=== PATIENT | male | born 1985 | race Caucasian/White ===

== ENCOUNTER 2018-05-21 10:47 | Emergency (ER) | payer BC ==
[2018-05-21 10:56] VITALS: BP 128/83
[2018-05-21] MEDS ORDERED: Sodium Chloride 0.9% 10 ML Syringe FLUSH PRN (11:14)
[2018-05-21] MEDS ORDERED: Sodium Chloride 0.9% 1,000 ML IV ONE (11:14)
[2018-05-21] MEDS ORDERED: Ketorolac 30 MG/ML SDV IVPUSH ONE (11:14)
[2018-05-21] MEDS ORDERED: Ondansetron 4 MG/2 ML SDV IVPUSH ONE (11:14)
[2018-05-21] MEDS ORDERED: Acetaminophen 325 MG Tab PO ONE (11:15)
[2018-05-21 11:43] LABS: CHLORIDE,CL 105 mmol/L (98-107); SODIUM,NA 141 mmol/L (136-145)
--- NOTE | 2018-05-21 12:14 | EDM.PDOC ---
ED HPI GENERAL MEDICAL PROBLEM - General Chief Complaint: Headache Stated Complaint: migraine Time Seen by Provider: 05/21/18 11:10 Source of Information: Reports: Patient History Limitations: Reports: No Limitations - History of Present Illness INITIAL COMMENTS - FREE TEXT/NARRATIVE: Patient comes to ER complaining of right sided headache. Links it to current sinus infection. Has been started on medication for the sinus infection. Was seen for same complaint here in 2016. At that time head negative head CT. Has similar headaches twice yearly usually per self report. Was at [employer] today and was too uncomfortable to continue working. Has tried Excedrin and ice packs. Has nausea. Photophobia. No emesis. No change in usual headache pattern. No other complaints. Right Temporal Headache Pain Score (Numeric/FACES): 9 - Related Data Allergies Allergy/AdvReac Type Severity Reaction Status Date / Time No Known Allergies Allergy Verified 05/21/18 10:56 Home Meds: Home Meds Acetaminophen [Tylenol Extra Strength] 1,000 mg PO Q6HR PRN 10/29/13 [History] Naproxen Sodium [Aleve] 220 mg PO Q12H PRN 10/29/13 [History] Acetaminophen/Caffeine [Excedrin Tension Headache Cplt] 1 each PO ASDIRECTED PRN 05/21/18 [History] Amoxicillin/Potassium Clav [Augmentin 875-125 Tablet] 1 each PO BID 05/21/18 [ History] Past Medical History HEENT History: Reports: Allergic Rhinitis, Sinusitis Neurological History: Reports: Migraines Psychiatric History: Reports: None Endocrine/Metabolic History: Reports: Obesity/BMI 30+ Social & Family History - Tobacco Use Smoking Status *Q: Current Every Day Smoker Years of Tobacco use: 10 Packs/Tins Daily: 0.5 - Living Situation & Occupation Living situation: Reports: Occupation: Employed ED ROS GENERAL - Review of Systems Review Of Systems: See Below Constitutional: Denies: Fever, Chills, Weakness, Diaphoresis HEENT: Reports: Sinus Problem. Denies: Ear Pain, Eye Discharge, Throat Pain, Throat Swelling, Vision Change Respiratory: Reports: No Symptoms Cardiovascular: Reports: No Symptoms GI/Abdominal: Reports: Nausea. Denies: Abdominal Pain, Vomiting : Reports: No Symptoms Musculoskeletal: Reports: No Symptoms Skin: Reports: No Symptoms Neurological: Reports: Headache. Denies: Confusion, Dizziness, Numbness, Paresthesia, Syncope, Tingling, Trouble Speaking, Difficulty Walking, Change in Speech, Gait Disturbance Psychiatric: Reports: No Symptoms Hematologic/Lymphatic: Reports: No Symptoms - Physical Exam Exam: See Below Exam Limited By: No Limitations General Appearance: Alert, No Apparent Distress, Other (Sitting in dark room, wearing sunglasses) Eye Exam: Bilateral Eye: EOMI, PERRL Nose: No: Nasal Deformity, Nasal Swelling Throat/Mouth: Normal Voice, No Airway Compromise Head Exam: Atraumatic, Normocephalic Neck: Supple Respiratory/Chest: No Respiratory Distress Cardiovascular: Regular Rate, Rhythm GI/Abdominal: Soft (Male) Exam: Deferred Rectal (Males) Exam: Deferred Neuro Exam (Abbreviated): Alert, Oriented, CN II-XII Intact, Normal Gait, No Motor/Sensory Deficits Psychiatric: Normal Affect, Normal Mood Skin Exam: Warm, Dry, Normal Color Course - Vital Signs Last Recorded V/S: Last Vital Signs Temp 36.7 C 05/21/18 10:50 Pulse 74 05/21/18 10:50 Resp 20 05/21/18 10:50 BP 128/83 05/21/18 10:50 Pulse Ox 96 05/21/18 10:50 - Orders/Labs/Meds Orders: Active Orders 24 hr Category Date Time Status Sodium Chloride 0.9% [Saline Flush] Med 05/21/18 11:14 Ordered 10 ml FLUSH ASDIRECTED PRN Saline Lock Insert [OM.PC] Routine Oth 05/21/18 11:14 Ordered Medication Orders Sodium Chloride (Saline Flush) 10 ml FLUSH ASDIRECTED PRN PRN Reason: Keep Vein Open Labs: Laboratory Tests 05/21/18 05/21/18 Range/Units 11:20 11:20 WBC 8.4 (4.0-10.2) K/uL RBC 5.20 (4.33-5.41) M/uL Hgb 15.8 (13.1-16.8) g/dL Hct 46.1 (39.0-49.0) % MCV 88.7 (84.0-98.0) fL MCH 30.4 (28.2-33.3) pg MCHC 34.3 (31.7-36.0) g/dL RDW 13.1 (11.2-14.1) % Plt Count 195 (150-350) K/uL Neut % (Auto) 74.8 (45.0-80.0) % Lymph % (Auto) 16.3 (10.0-50.0) % [place] % (Auto) 5.7 (2.0-14.0) % Eos % (Auto) 2.5 (0.0-5.0) % Baso % (Auto) 0.7 (0.0-2.0) % Neut # (Auto) 6.25 (1.40-7.00) K/uL Lymph # (Auto) 1.36 (0.50-3.50) K/uL [place] # (Auto) 0.48 (0.00-1.00) K/uL Eos # (Auto) 0.21 (0.00-0.50) K/uL Baso # (Auto) 0.06 (0.00-0.20) K/uL Sodium 141 (136-145) mmol/L Potassium 3.8 (3.5-5.1) mmol/L Chloride 105 (98-107) mmol/L Carbon Dioxide 30.7 (21.0-32.0) mmol/L BUN 12 (7-18) mg/dL Creatinine 0.94 (0.51-1.17) mg/dL Est Cr Clr Drug Dosing 133.59 mL/min Estimated GFR (MDRD) > 60 mL/min Glucose 125 H (74-106) mg/dL Calcium 8.8 (8.5-10.1) mg/dL Magnesium 2.1 (1.8-2.4) mg/dL Total Bilirubin 0.5 (0.2-1.0) mg/dL AST 25 (15-37) U/L ALT 64 (12-78) U/L Alkaline Phosphatase 85 (46-116) IU/L Total Protein 7.2 (6.4-8.2) g/dL Albumin 4.0 (3.4-5.0) g/dL Meds: Medications Generic Name Dose Route Start Last Admin Trade Name Freq PRN Reason Stop Dose Admin Sodium Chloride 10 ml 05/21/18 11:14 Saline Flush FLUSH ASDIRECTED PRN Keep Vein Open Discontinued Medications Generic Name Dose Route Start Last Admin Trade Name Freq PRN Reason Stop Dose Admin Acetaminophen 650 mg 05/21/18 11:15 05/21/18 11:46 Tylenol PO 05/21/18 11:16 650 mg NOW ONE Administration Sodium Chloride 1,000 mls @ 999 mls/hr 05/21/18 11:14 05/21/18 11:47 Normal Saline IV 05/21/18 12:14 999 mls/hr .BOLUS ONE Administration Ketorolac Tromethamine 30 mg 05/21/18 11:14 05/21/18 11:47 Toradol IVPUSH 05/21/18 11:15 30 mg ONETIME ONE Administration Ondansetron HCl 4 mg 05/21/18 11:14 05/21/18 11:47 Zofran IVPUSH 05/21/18 11:15 4 mg ONETIME ONE Administration - Re-Assessments/Exams Free Text/Narrative Re-Assessment/Exam: 05/21/18 12:15 Baseline labs drawn. IV fluid bolus, Toradol, Zofran given. 05/21/18 12:53 Labs unremarkable. Headache improved. Patient would like to return to work and says that he only has a few hours left in his shift. To follow up as needed if symptoms worsen again. Departure - Departure Time of Disposition: 12:50 Disposition: Home, Self-Care 01 Condition: Good Clinical Impression: Headache - Discharge Information *PRESCRIPTION DRUG MONITORING PROGRAM REVIEWED*: Not Applicable *COPY OF PRESCRIPTION DRUG MONITORING REPORT IN PATIENT [place]: Not Applicable Instructions: Sinus Rinse, [id number], Sinus Headache Referrals: Philomena Rolle, [employer] [Primary Care Provider] - Forms: ED Department Discharge Additional Instructions: Continue antibiotics. Stay hydrated. OK to continue to use Tylenol and Aleve/ Ibuprofen for pain but do not exceed recommended doses. Follow up as needed if symptoms worsen. Given the frequency of sinus infections that you experience you may want to consider daily sinus rinses with a Neti Pot to keep your sinuses clean. Smoking is also a contributor to sinusitis. - My Orders Last 24 Hours: My Active Orders 05/21/18 11:14 Sodium Chloride 0.9% [Saline Flush] 10 ml FLUSH ASDIRECTED PRN Saline Lock Insert [OM.PC] Routine - Assessment/Plan Last 24 Hours: My Active Orders 05/21/18 11:14 Sodium Chloride 0.9% [Saline Flush] 10 ml FLUSH ASDIRECTED PRN Saline Lock Insert [OM.PC] Routine
== END 2018-05-21 13:03 | disposition home or self-care (01) ==
LOC: LL.ED 10:47
DX: R51 Headache (principal); F17.210 Nicotine dependence, cigarettes, uncomplicated; Z79.899 Other long term (current) drug therapy
CPT/HCPCS: 36415; 80053; 83735; 85025; 96361; 96374; 96375; 99283; A9270-GY; J1885; J2405; J7030